=== PATIENT | female | born 1975 | race Caucasian/White ===

== ENCOUNTER → 2024-03-16 10:47 | Outpatient (REF) | payer OTHER, SELFPAY | LOC: WDC 10:47 | PROVIDERS: ATTENDING PHYSICIAN Obstetrics & Gynecology; FAMILY PHYSICIAN Physician Assistant Medical | DX: Z12.31 Encounter for screening mammogram for malignant neoplasm of breast (principal); M25.552 Pain in left hip | CPT/HCPCS: 73502; 77063; 77067 ==

== ENCOUNTER 2024-06-03 14:38 | Emergency (ER) | payer OTHER, SELFPAY ==
[2024-06-03 14:40] VITALS: BP 127/65
[2024-06-03 15:01] LABS: % Basophils 0.8 % (0-2); % Eosinophils 1.4 % (0-6); % Immature Granulocytes 0.2 % (0-0.5); % Lymphocytes 25.5 % (20.5-51.1); % Neutrophils 65.1 % (42.2-75.2); Absolute Basophils 0.1 10^3/uL (0-0.2); Absolute Eosinophils 0.1 10^3/uL (0-0.7); Absolute Lymphocytes 2.6 10^3/uL (1.2-3.4); Absolute Monocytes 0.7 10^3/uL (0.1-0.6); Absolute Neutrophils 6.6 10^3/uL (1.4-6.5); Hematocrit 35.2 % (37.0-47.0); Hemoglobin 11.9 g/dL (12.0-16.0); Mean Corp Hgb Conc. 33.8 g/dL (33.0-37.0); Mean Corpuscular Volume 88.7 fL (81.0-99.0); Mean Platelet Volume 9.8 fL (7.4-10.4); Nucleated Red Blood Cells % 0 %; Platelet Count 226 10^3/uL (130-400); Red Blood Cell Count 3.97 10^6/uL (4.20-5.40); Red Cell Dist. Width 12.7 % (11.5-14.5); White Blood Cell Count 10.1 10^3/uL (4.8-10.8)
[2024-06-03 15:25] VITALS: BP 135/78
[2024-06-03 15:28] LABS: ALT (SGPT) 22 U/L (0-35); AST (SGOT) 28 U/L (14-36); Albumin 4.4 g/dl (3.5-5.0); Alkaline Phosphatase 53 U/L (38-126); Blood Urea Nitrogen 15 mg/dl (7-17); Calcium 9.6 mg/dl (8.4-10.2); Carbon Dioxide 24 mmol/L (22-30); Chloride 104 mmol/L (98-107); Glucose 115 mg/dl (70-99); Potassium 4.2 mmol/L (3.5-5.1); Sodium 136 mmol/L (135-145); Total Bilirubin 0.5 mg/dl (0.2-1.3); Total Protein 7.4 g/dl (6.3-8.2); eGFR > 60.00
[2024-06-03 16:00] VITALS: BP 141/72
[2024-06-03 16:21] VITALS: BP 117/62; BP 122/64; BP 123/66; PULSE 56; PULSE 57; PULSE 70
[2024-06-03 16:35] LABS: Urine Albumin Negative (Neg - Trace); Urine Bilirubin Negative (Negative); Urine Character Clear (Clear); Urine Color Yellow; Urine Glucose Negative (Negative); Urine Ketone Negative (Negative); Urine Leukocyte Trace (Negative); Urine Nitrite Negative (Negative); Urine Occult Blood Negative (Negative); Urine Urobilinogen Negative (Neg - 1+)
[2024-06-03 16:44] LABS: Urine Bacteria Few (Negative); Urine Red Blood Cell 0-2 /HPF (0-2)
--- NOTE | 2024-06-03 16:48 | ED.GENMED ---
History of Present Illness
General
Chief Complaint: Fainting/Passed Out
Source: patient
Exam Limitations: none
Time Seen by Provider: 06/03/24 15:33
Nursing documentation reviewed up to this point in time: agreed with
History of Present Illness
History of Present Illness:
Patient without significant past medical history, presents to ED after witnessed syncopal episode this morning. Patient states that she was assisting her daughter, who recently had an orthopedic procedure, to walk to restroom earlier this morning,
around 5 AM. As she was leaning against a wall, waiting for her daughter, she felt sudden onset of lightheadedness, associated with diaphoresis. She was told that she fell backwards and hit the back of her head against tile floor. She did wake up
immediately afterwards and there was no confusion. Since then, patient has had mild posterior head discomfort. Denies blurred vision. Denies dizziness. Denies loss of sensation or weakness. Denies nausea or vomiting. Of note, patient states
that for the past 1 week, patient has been under stress due to her daughter's recent surgery. As such, patient has not been eating as well as she typically does, and probably has not been drinking enough fluids either. In addition, patient has not
been sleeping well, as she has been assisting her daughter at night. Denies previous history of similar symptoms. Patient's father had a cardiac event in his early 30s, but he also had number of significant medical conditions.
Past History
Past History
ED Past Medical History: Asthma
ED Past Surgical History: None
Social History
Tobacco: Non-smoker
Personal:
Living: with family
Review of Systems
Review of Systems
Allergies reviewed?: Yes
All Other Systems: ROS reviewed and negative except as documented in HPI and ROS
Constitutional: Reports no symptoms
EENT: Reports no symptoms
Respiratory: Reports no symptoms
Cardiac: Reports syncope; Denies chest pain or palpitations
ABD/GI: Reports no symptoms; Denies abdominal pain, nausea or vomiting
Musculoskeletal: Reports no symptoms
Skin: Reports no symptoms
Neurological: Reports dizzy and headache
Phy Exam
Physical Exam
Physical Exam:
Physical Exam
General: no apparent distress, not acutely ill. afebrile
Head: nc/at. eomi
Neck: supple. no meningeal signs. normal range of motion
Heart: s1/s2 regular rate and rhythm, no murmur. equal radial pulses.
Lungs: no acute respiratory distress. clear bilaterally
Abdomen: normal bowel sounds. not tender.
Neuro: alert and oriented. no focal neurological deficits
Skin: no rash
Psychiatric: well kept. interactive and cooperative
Extremities: no edema. no calf tenderness.
Course
Orders/Labs/Results
Orders:
Orders
06/03/24 14:44
Electrocardiogram (*1) Urgent
Reason for Study: Syncope
EKG- Treatment ONCE
06/03/24 14:54
CMP [Comprehensive Metabolic Panel] Urgent
Complete Blood Count/With Diff Urgent
06/03/24 16:15
CT Cervical Spine W/o Iv Contr Urgent
Comment:
Reason For Exam: trauma
Orthostatic VS- Treatment ONCE
06/03/24 16:16
CT Head W/o Iv Contrast Urgent
Comment:
Reason For Exam: syncope with posterior trauma
06/03/24 16:21
Troponin I Urgent
Urinalysis Reflex To Culture Urgent
Date Specimen was Collected: 06/03/24
Time Specimen was Collected: 16:18
Urine Microscopic Reflex Cult Urgent
Abnormal Lab Results
06/03/24 06/03/24
14:54 16:21
RBC 3.97 L 10^6/uL
(4.20-5.40)
Hgb 11.9 L g/dL
(12.0-16.0)
Hct 35.2 L %
(37.0-47.0)
Absolute Neuts (auto) 6.6 H 10^3/uL
(1.4-6.5)
Absolute Monos (auto) 0.7 H 10^3/uL
(0.1-0.6)
Glucose 115 H mg/dl
(70-99)
Leukocyte Esterase Rfl Trace A
(Negative)
Urine Bacteria (Reflex) Few A
(Negative)
06/03/24 14:54
06/03/24 14:54
Vital Signs
Initial and Last Documented VS:
Initial Vital Signs
Temp Pulse Resp BP Pulse Ox
98.4 F 71 16 127/65 99
06/03/24 14:40 06/03/24 14:40 06/03/24 14:40 06/03/24 14:40 06/03/24 14:40
Last Documented Vital Signs
Temp Pulse Resp BP Pulse Ox
98.4 F 61 17 141/72 100
06/03/24 14:40 06/03/24 16:00 06/03/24 15:30 06/03/24 16:00 06/03/24 15:45
MDM/Problems Addressed
MDM/Problems Addressed:
Patient with an unremarkable workup in ED, including blood work and multiple imaging studies. Patient otherwise remains afebrile, hemodynamically stable, neurologically intact, with any acute distress. Patient's presenting symptoms likely
vasovagal response, from recent stress along with lack of sleep and oral intake. As such, patient will be discharged home at this time, with recommendation to continue hydration at home, be mindful of positional changes short-term, as well as PCP
follow-up, as needed as an outpatient.
*Critical Care Note
Total Time (30-74mins, 75-104mins- exclusive of procedures): Not Applicable
ED Attending Note
-
Portions of this chart may have been created with voice recognition software.� Occasional wrong word or��sound alike� substitutions may have occurred due to the inherent limitations of voice recognition software.
Discharge Plan
Departure
Patient Disposition: Home (Routine Discharge)
Date of Disposition: 06/03/24
Time of Disposition: 17:32
Patient with high blood pressure during this ER visit?: Yes
Condition: Good
Discharge Problem:
Head injury, Vasovagal response
Instructions: Vasovagal Response (DC), Concussion, Adult ED
Prescriptions:
No Action
ondansetron 4 MG tablet,disintegrating
4 mg PO TIDPRN PRN (Reason: nausea) Qty: 6 0RF
Referrals:
Muna Davis PA [Family Provider] -
Activity Restrictions/Additional Instructions:
As discussed, please follow-up with your primary care physician with any further concerns. In the meantime, do recommend rest and increased oral/fluid intake
Interventions
Interventions:
*Risk Screen - Suicide Last Done: 06/03/24 14:40
*General Assessment Last Done: 06/03/24 14:40
*Neglect/Abuse Screening Last Done: 06/03/24 14:40
*ED COVID-19 Vaccine History Last Done: 06/03/24 14:40
*Nursing Disposition Last Done: 06/03/24 17:40
ED- Cardiac Assessment Last Done: 06/03/24 15:25
ED- Neurological Assessment Last Done: 06/03/24 15:25
Discharge Date and Time
Discharge Date/Time: 06/03/24 17:40
Print Language: UKRAINIAN
[2024-06-03 17:01] LABS: Troponin I < 0.012 ng/ml
== END 2024-06-03 17:40 | disposition home or self-care (01) ==
LOC: EMR 14:38
PROVIDERS: Emergency Medicine; EMERGENCY PHYSICIAN Emergency Medicine; FAMILY PHYSICIAN Physician Assistant Medical
DX: R55 Syncope and collapse (principal); S09.90XA Unspecified injury of head, initial encounter; R51.9 Headache, unspecified; W18.39XA Other fall on same level, initial encounter; Y93.89 Activity, other specified; R03.0 Elevated blood-pressure reading, without diagnosis of hypertension; J45.909 Unspecified asthma, uncomplicated; Z91.018 Allergy to other foods
CPT/HCPCS: 99284; 70450; 72125; 80053; 81003; 81015; 84484; 85025; 93005